=== PATIENT | female | born 1950 | race Caucasian/White ===

== ENCOUNTER 2017-08-24 22:22 | Emergency (ER) | payer MEDICARE ==
[~2017-08-24] VITALS: Ht 165.1 cm; Wt 59.7 kg
[2017-08-24 22:37] VITALS: BP 141/63; PULSE 61; RESP 20; TEMP 97.2; O2SAT 99
--- NOTE | 2017-08-24 23:16 | PD ---
HPI Chief Complaint: Fall Time Seen by Provider: 22:48 Travel History International Travel<30 days: No Contact w/Intl Traveler<30days: No Traveled to known affect area: No History of Present Illness HPI 66-year-old female here for evaluation of a left forearm injury after a mechanical trip and fall. The patient tripped on a small step up in her garage and is unsure what she struck her left forearm against. She reports significant swelling and bruising which has seemed to decrease since the injury first occurred. She denies any pain. She denies head injury or LOC. No head neck or back pain. No pain in any of her extremities. She is not on any antiplatelets or anticoagulants. She is right-hand dominant. FORMERLY [facility], [facility] Past Medical History High Cholesterol: Yes Hypertension: Yes Tetanus Vaccination: Unknown Influenza Vaccination: Yes Past Surgical History Surgical History: No Previous Surgery Social History Alcohol Use: Yes Tobacco Use: Yes Substance Use: No Allergies-Medications (Allergen,Severity, Reaction): Coded Allergies: No Known Allergies (Unverified , 08/24/17) Reported Meds & Prescriptions Reported Meds & Active Scripts Active Active Prescriptions or Reported Medications Unobtainable Review of Systems Except as stated in HPI: all other systems reviewed are Neg Physical Exam Narrative GENERAL: Well-developed, well-nourished, comfortable, awake, alert, GCS 15, no apparent distress. SKIN: Focused skin assessment warm/dry. Mid/posterior left forearm with area of ecchymosis and edema. No lacerations or abrasions. HEAD: Atraumatic. Normocephalic. EYES: Pupils equal and round. No scleral icterus. No injection or drainage. ENT: Mucous membranes pink and moist. NECK: Trachea midline. No JVD. No midline cervical spine step-off or tenderness. CARDIOVASCULAR: Regular rate and rhythm. No murmur appreciated. RESPIRATORY: No accessory muscle use. Clear to auscultation. Breath sounds equal bilaterally. GASTROINTESTINAL: Abdomen soft, non-tender, nondistended. Hepatic and splenic margins not palpable. MUSCULOSKELETAL: Negative/left/posterior forearm with moderate edema with overlying ecchymosis. All compartments in the left upper extremity are supple. There is normal range of motion in the entire left upper extremity. There are no bony step-offs. Normal winch stripper strength bilaterally. The rest of her joints and extremities are without deformity, without tenderness, with normal range of motion. No midline vertebral step-off or tenderness. NEUROLOGICAL: Awake and alert. No obvious cranial nerve deficits. Motor grossly within normal limits. Normal speech. Normal motor/sensation in bilateral upper extremities. PSYCHIATRIC: Appropriate mood and affect; insight and judgment normal. Data Data Last Documented VS Vital Signs Date Time Temp Pulse Resp B/P (MAP) Pulse Ox O2 Delivery O2 Flow Rate FiO2 08/24/17 22:37 97.2 61 20 141/63 (89) 99 Orders Orders Forearm (2vws) (08/24/17 ) MDM Medical Decision Making Medical Screen Exam Complete: Yes Emergency Medical Condition: Yes Differential Diagnosis Left forearm contusion versus fracture. Narrative Course Left forearm x-ray: CONCLUSION: Soft tissue swelling without fracture. Patient was made aware of x-ray findings and provided a copy of the results. Again she denies any pain to the forearm. All compartments in the left forearm and upper extremity are supple. RICE endorsed. She is stable for discharge home with outpatient follow-up with her primary care physician this week. She was informed of concerning signs and symptoms of when to return to the emergency department immediately. She verbalizes understanding and agreement with plan. Diagnosis Primary Impression: Fall Qualified Codes: W19.XXXA - Unspecified fall, initial encounter Additional Impression: Contusion of left forearm Qualified Codes: S50.12XA - Contusion of left forearm, initial encounter Referrals: Primary Care Physician 3 days Additional Instructions: Follow-up with your primary care physician this week. Keep arm elevated and apply ice. Take Tylenol or ibuprofen for pain. Return to the emergency department for worsening symptoms or any other concerns as discussed. Scripts Unable to Obtain Active Prescriptions or Reported Meds Disposition: 01 DISCHARGE HOME Condition: Stable Tony Robledo MD Aug 24, 2017 23:16
--- NOTE | 2017-08-24 23:16 | RADRPT ---
EXAM DATE/TIME: 08/24/2017 23:02 [facility] COMPARISON: No previous studies available for comparison. INDICATIONS : Left distal forearm pain with swelling post fall. MEDICAL HISTORY : None. SURGICAL HISTORY : None. ENCOUNTER: Initial ACUITY: 1 day PAIN SCORE: 6/10 LOCATION: Left upper extremity FINDINGS: There is soft tissue swelling of the dorsal/radial aspect of the distal forearm. No radiopaque foreig n body. The left radius and ulna are intact. CONCLUSION: Soft tissue swelling without fracture. Carroll Alvarez MD on August 24, 2017 at 23:14 Board Certified Radiologist. This report was verified electronically.
== END 2017-08-24 23:48 | disposition home or self-care (01) ==
LOC: PHED 22:22
DX: S50.12XA Contusion of left forearm, initial encounter (principal); W01.10XA Fall on same level from slipping, tripping and stumbling with subsequent striking against unspecified object, initial encounter; E78.00 Pure hypercholesterolemia, unspecified; I10 Essential (primary) hypertension; Z72.0 Tobacco use
CPT/HCPCS: 73090; 99283

== ENCOUNTER 2017-09-15 10:20 | Emergency (ER) | payer MEDICARE | END 2017-09-15 11:15 | disposition home or self-care (01) | LOC: PHED 10:20 | DX: S61.551A Open bite of right wrist, initial encounter (principal); W54.0XXA Bitten by dog, initial encounter | CPT/HCPCS: 99283 ==